=== PATIENT | male | born 1965 | race African-American/Black ===

== ENCOUNTER 2017-09-04 16:31 | Emergency (ER) | payer OTHER ==
[~2017-09-04] VITALS: Ht 188 cm; Wt 84.6 kg
[~2017-09-04 16:31] MED LIST: ENDOCET 5-3251 EACH PO; FLEXERIL10 MG PO; KEFLEX500 MG PO; NAPROXEN500 MG PO; PERCOCET 5/31 TABLET PO; ZOFRAN4 MG PO
[2017-09-04] MEDS ORDERED: CLINDAMYCIN HC150 MG PO (19:11)
[2017-09-04] MEDS ORDERED: MOTRIN600 MG PO (19:11)
[2017-09-04] MEDS ORDERED: FLEXERIL10 MG PO (19:11)
[2017-09-04 19:29] VITALS: BP 130/89
== END 2017-09-04 19:32 | disposition home or self-care (01) ==
LOC: EME 16:31 → EXP 16:31
DX: S56.912A Strain of unspecified muscles, fascia and tendons at forearm level, left arm, initial encounter (principal); S20.219A Contusion of unspecified front wall of thorax, initial encounter; V49.40XA Driver injured in collision with unspecified motor vehicles in traffic accident, initial encounter; Y92.410 Unspecified street and highway as the place of occurrence of the external cause; Z87.891 Personal history of nicotine dependence; Z98.890 Other specified postprocedural states; Z88.5 Allergy status to narcotic agent; Z88.0 Allergy status to penicillin; Z91.010 Allergy to peanuts
CPT/HCPCS: 71046; 73080; 73110; 99281; 99283